=== PATIENT | female | born 2000 | race Caucasian/White ===

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

== ENCOUNTER 2019-01-21 17:25 | Emergency (ER) | payer SELFPAY ==
[~2019-01-21] VITALS: Ht 167.6 cm; Wt 58.1 kg
--- NOTE | 2019-01-21 17:35 | NUR ---
REC'D PT IN RM 9 FROM THE LOBBY VIA W/C. ORIENTED X4 AND WAS ABLE TO STAND ON HER OWN UPON TX FROM THE W/C TO THE STRETCHER
[2019-01-21 17:37] VITALS: BP 123/81
--- NOTE | 2019-01-21 17:43 | NUR ---
ORTHOSTATICS DONE AND GIVEN TO DR. WILL
[2019-01-21] MEDS ORDERED: KETOROLAC TROMETHAMINE 30 MG/ML VIAL IV NR (18:15)
[2019-01-21] MEDS ORDERED: DIPHENHYDRAMINE HCL INJ 50 MG/ML VIAL IV NR (18:15)
[2019-01-21] MEDS ORDERED: METOCLOPRAMIDE HCL 10 MG/2ML VIAL IV NR (18:15)
--- NOTE | 2019-01-21 18:15 | NUR ---
2 ATTEMPTS AT IV; UNSUCCESSFUL. DELIVERY MGR NOTIFIED.
--- NOTE | 2019-01-21 18:27 | NUR ---
MEDS GIVEN PER DR'S ORDRS AND PT HAS TOLERATED WELL.
[2019-01-21 18:39] LABS: BASOPHILS # (AUTO) 0.1 (0.0-0.1); BASOPHILS % 0.8 % (0.0-1.0); EOSINOPHILS % 0.3 % (0.0-6.0); HEMATOCRIT 41.1 % (34.2-44.1); HEMOGLOBIN 13.5 g/dL (12.0-16.0); LYMPHOCYTES # (AUTO) 2.4 (1.0-3.2); LYMPHOCYTES % 27.4 % (18.0-39.1); MEAN CORPUSCULAR HEMOGLOBIN 30.6 pg (28-32); MEAN CORPUSCULAR HGB CONC 32.8 g/dL (31-35); MEAN CORPUSCULAR VOLUME 93.2 fL (81-99); MONOCYTES # (AUTO) 0.6 (0.2-0.8); MONOCYTES % 6.6 % (4.4-11.3); NEUTROPHILS # (AUTO) 5.7 (2.1-6.9); NEUTROPHILS % 64.7 % (38.7-80.0); PLATELET COUNT 249 x10e3/uL (140-360); RED BLOOD COUNT 4.41 x10e6/uL (3.6-5.1); RED CELL DISTRIBUTION WIDTH 12.3 % (11.7-14.4)
[2019-01-21 19:01] LABS: ALANINE AMINOTRANSFERASE 16 IU/L (0-55); ALBUMIN 3.9 g/dL (3.5-5.0); ALBUMIN/GLOBULIN RATIO 1.1 (0.8-2.0); ALKALINE PHOSPHATASE 56 IU/L (40-150); ANION GAP 13.4 mmol/L (8-16); BLOOD UREA NITROGEN 9 mg/dL (7-26); BUN/CREATININE RATIO 12 (6-25); CALCIUM 9.7 mg/dL (8.4-10.2); CARBON DIOXIDE 23 mmol/L (22-29); CHLORIDE 107 mmol/L (98-107); CREATININE, SERUM 0.78 mg/dL (0.57-1.11); EST GLOMERULAR FILTRATION RATE > 60 ML/MIN (60-); GLUCOSE 96 mg/dL (74-118); POTASSIUM 3.4 mmol/L (3.5-5.1); SODIUM 140 mmol/L (136-145)
--- NOTE | 2019-01-21 19:10 | NUR ---
pt in br to give urine.
[2019-01-21] MEDS ORDERED: SODIUM CHLORIDE 0.9% 1000ML 1,000 ML IV STA (19:14)
[2019-01-21] MEDS ORDERED: POTASSIUM CHLORIDE 20 MEQ TAB CR PO NR (19:30)
[2019-01-21] MEDS ORDERED: SODIUM CHLORIDE 0.9% 1000ML 1,000 ML IV ONE (19:45)
[2019-01-21 19:53] LABS: BILIRUBIN,URINE NEGATIVE (NEGATIVE); CLARITY,URINE CLEAR (CLEAR); COLOR,URINE YELLOW (YELLOW); KETONES,URINE TRACE (NEGATIVE); LEUKOCYTE ESTERASE ,URINE SMALL (NEGATIVE); NITRITE,URINE NEGATIVE (NEGATIVE); PROTEIN,URINE DIPSTICK NEGATIVE (NEGATIVE); URINE UROBILINOGEN 0.2 mg/dL (0.2 - 1)
[2019-01-21 19:58] LABS: PREGNANCY TEST, URINE NEGATIVE (NEGATIVE)
[2019-01-21 20:28] LABS: BACTERIA,URINE FEW /HPF; EPITHELIAL CELLS,URINE MODERATE /LPF; MUCUS,URINE FEW (RARE)
== END 2019-01-21 21:00 | disposition home or self-care (01) ==
LOC: ER 17:29
DX: G43.119 Migraine with aura, intractable, without status migrainosus (principal)
CPT/HCPCS: 36415; 80053; 81001; 81025; 84702; 85025; 87086; 99284; J1200; J1885; J2765; J7030

== ENCOUNTER 2019-06-21 21:22 | Emergency (ER) | payer SELFPAY ==
[~2019-06-21] VITALS: Ht 167.6 cm; Wt 56.7 kg
== END 2019-06-21 22:15 | disposition home or self-care (01) ==
LOC: ER 21:22
DX: H10.023 Other mucopurulent conjunctivitis, bilateral (principal)

== ENCOUNTER 2019-08-23 06:23 | Emergency (ER) | payer SELFPAY ==
[~2019-08-23] VITALS: Ht 167.6 cm; Wt 56.2 kg
[2019-08-23] MEDS ORDERED: ACETAMINOPHEN 325 MG TAB PO ONE (06:45)
[2019-08-23 06:54] LABS: CLARITY,URINE CLOUDY (CLEAR); COLOR,URINE YELLOW (YELLOW)
[2019-08-23 06:55] LABS: KETONES,URINE NEGATIVE (NEGATIVE); LEUKOCYTE ESTERASE ,URINE TRACE (NEGATIVE); NITRITE,URINE NEGATIVE (NEGATIVE); PROTEIN,URINE DIPSTICK 1+ (NEGATIVE); URINE UROBILINOGEN 1 mg/dL (0.2 - 1)
[2019-08-23 06:56] LABS: BILIRUBIN,URINE SMALL (NEGATIVE)
--- NOTE | 2019-08-23 06:59 | NUR ---
Report to EDU Saldivar.
[2019-08-23 07:08] LABS: BACTERIA,URINE MODERATE /HPF; EPITHELIAL CELLS,URINE MODERATE /LPF; RBC,URINE 21-50 /HPF (0-5); TRANSITIONAL EPI CELLS,URINE FEW; WBC,URINE (MAN) 21-50 /HPF (0-5)
[2019-08-23] MEDS ORDERED: ONDANSETRON HCL 4 MG ORAL DISINTEGRATING TAB PO ONE (07:15)
[2019-08-23] MEDS ORDERED: KETOROLAC TROMETHAMINE 60 MG/2 ML VIAL IM ONE (07:15)
[2019-08-23] MEDS ORDERED: CEFTRIAXONE SOD 1 GM VIAL IM ONE (07:15)
[2019-08-23] MEDS ORDERED: LIDOCAINE HCL 1% 2 ML AMP ONE (07:33)
== END 2019-08-23 07:57 | disposition home or self-care (01) ==
LOC: ER 06:23
DX: R30.0 Dysuria (principal); R11.2 Nausea with vomiting, unspecified; N30.91 Cystitis, unspecified with hematuria
CPT/HCPCS: 81001; 81025; 87086; 99283; J0696; J1885; J2001; Q0162

== ENCOUNTER 2019-09-10 10:10 | Emergency (ER) | payer SELFPAY ==
[~2019-09-10] VITALS: Ht 167.6 cm; Wt 56.2 kg
--- OUTSIDE RECORDS SUMMARY | 2019-09-10 10:13 | XMS REPORT ---
Author Author [facility] t Organization [facility] Address [address] [place] [address] Phone Unavailable Care Team Providers Care Homeland Security Program Specialist Name Role Phone NO, PCP PCP Unavailable Savanna GREENWOOD Attphys Unavailable Payers Payer Name Policy Type Policy Number Effective Date Expiration Date S ource [facility] [id number] [facility] [id number] [facility] [id number] [facility] Advance Directives Directive Decision Effective Date Termination Date Comments Sour ce Yes N/A [facility] Problems Condition Name Condition Details Condition Category Status Onset Date Resolution Date Last Treatment Date Treating Clinician Comments Source Problem Condition [facility] Allergies, Adverse Reactions, Alerts Allergy Name Allergy Type Status Severity Reaction(s) Onset Date Inacti ve Date Treating Clinician Comments Source Penicillin Allergy to substance Active 2018-07-06 00:00:00 [facility] Penicillins DA Active U 2017-12-22 00:00:00 [facility] Penicillins DA Active U 2017-01-07 00:00:00 [facility] Social History Social Habit Start Date Stop Date Quantity Comments Source Sex Assigned At 2000 00:00:00 2000 00:00:00 Female [facility] Medications Ordered Medication Name Filled Medication Name Start Date Stop Da te Current Medication? Ordering Clinician Indication Dosage Frequency Signature (SIG) Comments Components Source Metronidazole 2018-03-03 00:00:00 Yes Abigail Fabián Pelegrina 1 tablet [facility] Drospirenone-Ethinyl Estradiol 2018-02-11 00:00:00 Yes Abigail Fabián Pelegrina 1 tablet [facility] Vital Signs Vital Name Observation Time Observation Value Comments Source Weight 2019-08-23 06:31:00 124 [lb_av] [facility] BMI (Body Mass Index) 2019-08-23 06:31:00 20.0 kg/m2 [facility] Procedures Procedure Date / Time Performed Performing Clinician [facility] e EMERGENCY DEPT VISIT 2019-06-21 00:00:00 [facility] Plan of Care Planned Activity Planned Date Details Comments Source Future Scheduled Test Bacterial urine culture [code = 630-4] [facility] Goal Patient referral [code = 9340734 ] [facility] Instructions Urinary Tract Infection - Women [facility] Encounters Start Date/Time End Date/Time Encounter Type Admission Type [facility] Facility Care Department Encounter ID Source 2019-09-10 10:13:06 Outpatient MHIEALT MHIEALT [id number] [facility] 2019-08-23 06:23:00 2019-08-23 07:57:00 Departed Emergency Room [facility] [id number] [facility] 2019-06-21 20:22:00 2019-06-21 21:15:00 Departed Emergency Room [facility] [id number] [facility] - Patients [facility] 2019-02-15 16:41:00 2019-02-15 16:41:00 Outpatient Naomi Head MD PhD PA Naomi Head MD PhD [place] [id number] [facility] 2019-01-21 17:29:00 2019-01-21 21:00:00 Departed Emergency Room [facility] [id number] [facility] 2018-07-07 20:24:00 2018-07-07 21:40:00 Departed Emergency Room [facility] [id number] [facility] 2018-07-06 15:55:00 2018-07-06 20:30:00 Departed Emergency Room 1 RAHEEM [facility] [id number] [facility] 2018-03-03 16:35:00 2018-03-03 16:35:00 Outpatient Naomi Head MD PhD PA Naomi Head MD PhD [place] [id number] [facility] Results Test Description Test Time Test Comments Results Result Comments Source Urine color determination 2019-08-23 06:45:00 Test Item Urine Color (test code = 5778-6) YELLOW [facility] gjwyqys5634-95-89 06:45:00* Test Item Value Reference Range Interpretation Comments Urine Clarity (test code = 60418-2) [facility] by Test strip 2019-08-23 06:45:00* Test Item Value Reference Range Interpretation Comments Urine Specific [place] (test code = 5811-5) >=1.030 [facility] pH measurement by automated test zufyb2928-87-10 06:45:00* Test Item Value Reference Range Interpretation Comments Urine pH (test code = 46480-2) 6.5 [facility] leukocyte esterase detection by alolwxxt8334-03-36 06:45:00* Test Item Value Reference Range Interpretation Comments Urine Leukocyte Esterase (test code = 5799-2) TRACE [facility] nitrite itvqyqezm8318-73-69 06:45:00* Test Item Value Reference Range Interpretation Comments Urine Nitrite (test code = 32344-4) NEGATIVE [facility] protein measurement by test strip (mass/volume)2019-08-23 06:45:00* Test Item Value Reference Range Interpretation Comments Urine Protein (test code = 5804-0) 1+ [facility] glucose rknwrsdwp8126-67-06 06:45:00* Test Item Value Reference Range Interpretation Comments Urine Glucose (UA) (test code = 2349-9) NEGATIVE [facility] ketones detection by automated test imnwz9331-13-33 06:45:00* Test Item Value Reference Range Interpretation Comments Urine Ketones (test code = 86065-9) NEGATIVE [facility] urobilinogen measurement by test strip (mass/volume)2019-08-23 06:45:00* Test Item Value Reference Range Interpretation Comments Urine Urobilinogen (test code = 09366-8) 1 [facility] total bilirubin measurement (mass/volume)2019-08-23 06:45:00* Test Item Value Reference Range Interpretation Comments Urine Bilirubin (test code = 1978-6) SMALL [facility] erythrocytes xhywukdxe0478-32-14 06:45:00* Test Item Value Reference Range Interpretation Comments Urine Blood (test code = 37760-5) TRACE [facility]Autom[facility] urine sediment leukocyte count by microscopy (number/high power field)2019-08-23 06:45:00* Test Item Value Reference Range Interpretation Comments Urine WBC (test code = 5821-4) [facility]Erythrocytes detection in urine sediment by light htnalrgvrr6725-23-40 06:45:00* Test Item Value Reference Range Interpretation Comments Urine RBC (test code = 27004-3) [facility]Bacteria detection in urine sediment by light tgqieyewge9027-60-75 06:45:00* Test Item Value Reference Range Interpretation Comments Urine Bacteria (test code = 48826-7) MODERATE [facility] HospitalEpithelial cells detection in urine sediment by light vsffsbwsux9330-83-52 06:45:00* Test Item Value Reference Range Interpretation Comments Urine Epithelial Cells (test code = 06796-6) MODERATE [facility] HospitalTransitional cells detection in urine sediment by light itjnbrgdpy6235-23-56 06:45:00* Test Item Value Reference Range Interpretation Comments Urine Transitional Epithelial Cells (test code = 8249-5) FEW [facility] HospitalUrine human chorionic gonadotropin (hCG) tyygkjtbq2947-06-47 06:45:00* Test Item Value Reference Range Interpretation Comments Urine Test (test code = 2106-3) NEGATIVE [facility] HospitalMucus detection in urine sediment by light ftobiziyga0313-09-23 19:30:00* Test Item Value Reference Range Interpretation Comments Urine Mucus (test code = 8247-9) FEW [facility] HospitalBlood leukocytes automated count (number/volume)2019-01-21 18:15:00* Test Item Value Reference Range Interpretation Comments White Blood Count (test code = 6690-2) 8.82 [facility] erythrocytes automated count (number/volume)2019-01-21 18:15:00* Test Item Value Reference Range Interpretation Comments Red Blood Count (test code = 789-8) 4.41 [facility]Blood hemoglobin measurement (moles/volume)2019-01-21 18:15:00* Test Item Value Reference Range Interpretation Comments Hemoglobin (test code = 75652-8) 13.5 [facility] HospitalAutomated blood hematocrit (volume fraction)2019-01-21 18:15:00* Test Item Value Reference Range Interpretation Comments Hematocrit (test code = 4544-3) 41.1 [facility] HospitalAutomated erythrocyte mean corpuscular ykpxxq0081-75-32 18:15:00* Test Item Value Reference Range Interpretation Comments Mean Corpuscular Volume (test code = 787-2) 93.2 [facility] HospitalAutomated erythrocyte mean corpuscular hemoglobin (mass per erythrocyte)2019-01-21 18:15:00* Test Item Value Reference Range Interpretation Comments Mean Corpuscular Hemoglobin (test code = 785-6) 30.6 [facility] HospitalAutomated erythrocyte mean corpuscular hemoglobin concentration measurement (mass/volume)2019-01-21 18:15:00* Test Item Value Reference Range Interpretation Comments Mean Corpuscular Hemoglobin Concent (test code = 786-4) 32.8 [facility] HospitalRDW CmnYm-Hkr0655-92-05 18:15:00* Test Item Value Reference Range Interpretation Comments Red Cell Distribution Width (test code = 36229-6) 12.3 [facility] HospitalAutomated blood platelet count (count/volume)2019-01-21 18:15:00* Test Item Value Reference Range Interpretation Comments Platelet Count (test code = 777-3) 249 [facility] segmented neutrophil count as percentage of total egtbyrcskw7919-70-69 18:15:00* Test Item Value Reference Range Interpretation Comments Neutrophils (%) (Auto) (test code = 69015-5) 64.7 [facility] HospitalAutomated blood lymphocyte count as percentage ot total pmouwejxeu4908-95-12 18:15:00* Test Item Value Reference Range Interpretation Comments Lymphocytes (%) (Auto) (test code = 736-9) 27.4 [facility] HospitalAutomated blood monocyte count as percentage of total fkmkovecmf6106-15-52 18:15:00* Test Item Value Reference Range Interpretation Comments Monocytes (%) (Auto) (test code = 5905-5) 6.6 [facility] HospitalAutomated blood eosinophil count as percentage of total uiyokkjmmq9066-08-54 18:15:00* Test Item Value Reference Range Interpretation Comments Eosinophils (%) (Auto) (test code = 713-8) 0.3 [facility] HospitalAutomated blood basophil count as percentage of total uizhkwrshl5844-70-02 18:15:00* Test Item Value Reference Range Interpretation Comments Basophils (%) (Auto) (test code = 706-2) 0.8 [facility] HospitalFluoroscopic procedure less than one hour abnbxaqu4774-19-94 18:15:00* Test Item Value Reference Range Interpretation Comments IM GRANULOCYTES % (test code = IM GRANULOCYTES %) 0.2 [facility] HospitalAutomated blood neutrophil count 2019-01-21 18:15:00* Test Item Value Reference Range Interpretation Comments Neutrophils # (Auto) (test code = 751-8) 5.7 [facility] HospitalBlood lymphocytes count (number/volume) 2019-01-21 18:15:00* Test Item Value Reference Range Interpretation Comments Lymphocytes # (Auto) (test code = 26234-7) 2.4 [facility] monocytes automated count (number/volume)2019-01-21 18:15:00* Test Item Value Reference Range Interpretation Comments Monocytes # (Auto) (test code = 742-7) 0.6 [facility] HospitalAutomated blood eosinophil count 2019-01-21 18:15:00* Test Item Value Reference Range Interpretation Comments Eosinophils # (Auto) (test code = 711-2) 0.0 [facility] HospitalAutomated blood basophil count (count/volume)2019-01-21 18:15:00* Test Item Value Reference Range Interpretation Comments Basophils # (Auto) (test code = 704-7) 0.1 [facility] HospitalFluoroscopic procedure less than one hour siqsykwx3888-35-81 18:15:00* Test Item Value Reference Range Interpretation Comments Absolute Immature Granulocyte (auto (anthony t code = Absolute Immature Granulocyte (auto) 0.02 [facility] plasma sodium measurement (moles/volume)2019-01-21 18:15:00* Test Item Value Reference Range Interpretation Comments Sodium Level (test code = 2951-2) 140 [facility]ellanderum or plasma potassium measurement (moles/volume)2019-01-21 18:15:00* Test Item Value Reference Range Interpretation Comments Potassium Level (test code = 2823-3) 3.4 [facility]um or plasma chloride measurement (moles/volume)2019-01-21 18:15:00* Test Item Value Reference Range Interpretation Comments Chloride Level (test code = 2075-0) 107 [facility]ellanderum or plasma carbon dioxide, total measurement (moles/volume)2019-01-21 18:15:00* Test Item Value Reference Range Interpretation Comments Carbon Dioxide Level (test code = 2028-9) 23 [facility]um or plasma anion boz1652-19-94 18:15:00* Test Item Value Reference Range Interpretation Comments Anion Gap (test code = 77167-0) 13.4 [facility] or plasma urea nitrogen measurement (mass/volume)2019-01-21 18:15:00* Test Item Value Reference Range Interpretation Comments Blood Urea Nitrogen (test code = 3094-0) 9 [facility]um or plasma creatinine measurement (mass/volume)2019-01-21 18:15:00* Test Item Value Reference Range Interpretation Comments Creatinine (test code = 2160-0) 0.78 [facility]um or plasma urea nitrogen/creatinine mass zjpth0775-14-52 18:15:00* Test Item Value Reference Range Interpretation Comments BUN/Creatinine Ratio (test code = 3097-3) 12 [facility] HospitalEstimated glomerular filtration rate (GFR) imqotwafohzxb3265-46-58 18:15:00* Test Item Value Reference Range Interpretation Comments Estimat Glomerular Filtration Rate (test code = 931706718) > 60 [facility] HospitalGlucose aaevzlnlgpe2895-73-20 18:15:00* Test Item Value Reference Range Interpretation Comments Glucose Level (test code = KAF1173) 96 [facility] or plasma calcium measurement (mass/volume)2019-01-21 18:15:00* Test Item Value Reference Range Interpretation Comments Calcium Level (test code = 25749-5) 9.7 [facility]um or plasma total bilirubin measurement (mass/volume)2019-01-21 18:15:00* Test Item Value Reference Range Interpretation Comments Total Bilirubin (test code = 1975-2) 0.7 [facility] HospitalFluoroscopic procedure less than one hour detmschh7945-63-70 18:15:00* Test Item Value Reference Range Interpretation Comments Aspartate Amino Transf (AST/SGOT) (test code = Aspartate Amino Transf (AST/SGOT)) 20 [facility] or plasma alanine aminotransferase measurement (enzymatic activity/volume)2019-01-21 18:15:00* Test Item Value Reference Range Interpretation Comments Alanine Aminotransferase (ALT/SGPT) (test code = 1742-6) 16 [facility]um or plasma protein measurement (mass/volume)2019-01-21 18:15:00* Test Item Value Reference Range Interpretation Comments Total Protein (test code = 2885-2) 7.6 [facility] or plasma albumin measurement (mass/volume)2019-01-21 18:15:00* Test Item Value Reference Range Interpretation Comments Albumin (test code = 1751-7) 3.9 [facility] HospitalPlasma globulin measurement (mass/volume) 2019-01-21 18:15:00* Test Item Value Reference Range Interpretation Comments Globulin (test code = 83729-5) 3.7 [facility] or plasma albumin/globulin mass zuzgx0824-04-60 18:15:00* Test Item Value Reference Range Interpretation Comments Albumin/Globulin Ratio (test code = 1759-0) 1.1 [facility] or plasma alkaline phosphatase measurement (enzymatic activity/volume)2019-01-21 18:15:00* Test Item Value Reference Range Interpretation Comments Alkaline Phosphatase (test code = 6768-6) 56 [facility]ellanderum or plasma choriogonadotropin ( test) zejjrtbew0862-13-08 18:15:00* Test Item Value Reference Range Interpretation Comments Human Chorionic Gonadotropin, Qual (test code = 2118-8) NEGATIVE [facility] HospitalCT [facility]/PELVIS Z5298-66-89 20:18:00 [facility] [address] [place] [address] Patient Name: FLOR FARIAS MR #: [id number] : 2000 Age/Sex: 17/F Req #: [id number] Adm Physician: Ordered by: MARVEL RIDDLE HEARING AID ASSEMBLY SUPERVISOR Report #: [id number] Location: ER Room/Bed: Procedure: [id number] C T/CT ABDOMEN/PELVIS W Exam Date: Exam Time: REPORT STATUS: Signed EXAM: CT of the abdomen and pelvis WITH contrast HISTORY: Fever, pain COMPARISON: None. TECHNIQUE: The abdomen and pelvis were scanned utilizing a multidetector helical scanner. Coronal and sagittal reformats are provided. PROTOCOL: Routine IV CONTRAST: 100 cc of Isovue-370. ORAL CONTRAST: Water RADIATION DOSE: Total DLP: 230.9 mGy*cm Estimated effective dose: (DLP x 0.015 x size factor) Dose modulation, iterative reconstruction, and/or weight based adjustment of the mA/kV was utilized to reduce the radiation dose to as low as reasonably a chievable. COMPLICATIONS: None FINDINGS: LOWER THORAX: Unre markable. Paucity of intra-abdominal and intra-pelvic fat partially limits the evaluation. HEPATOBILIARY: No mass. No biliary dilation. The gallbladder is contracted, no calcified stone. SPLEEN: No splenomegaly. PANCREAS: No focal masses or ductal dilatation. ADRENALS: No discrete a drenal nodule. KIDNEYS/URETERS: No hydronephrosis, stones, or definite rogelio d mass lesions. PELVIC ORGANS/BLADDER: The uterus is anteflexed. G I TRACT: The stomach is distended. No small bowel or colonic dilation. The appendix is normal. PERITONEUM / RETROPERITONEUM: No free air or fluid. LYMPH NODES: No definitive pathologically enlarged lymph node. VESSELS: Unr emarkable. BONES: No aggressive osseous lesion or acute fracture. SOFT TIS SUES: Unremarkable. IMPRESSION: 1. No obstruction or ileus. 2. No evidence of acute appendicitis or an abscess. Signed by: Luis WayO., M.M.M. on 07/06/2018 8:24 PM Dictated By: EVELIO Rodriguez Signed By: EVELIO GARCIA DO on 07/06/182023 Transcribed By: SAMMY on 06/18 COPY TO: MARVEL RIDDLE NP CHEST 2 YJETS3829-18-04 16:55:00 [place] [address] Patient Name: FLOR FARIAS MR #: [id number] : 2000 Age/Sex: 17/F Req #: [id number] Adm Physician: Ordered by: MARVEL RIDDLE NP Report #: [id number] Location: ER Room/Bed: Procedure: [id number] D X/CHEST 2 VIEWS Exam Date: 07/06/18 Exam Time: 1630 REPORT STATUS: Signed Frontal and lateral views of the chest. HISTORY: Fever, shortness of breath COMPAR DOUGLAS: None available. DISCUSSION: Lungs: The lungs are we ll inflated. No evidence of a consolidative pneumonia or pulmonary alveolar edema. Pleura: No pleural effusion or pneumothorax. Heart and med iastinum: The cardiomediastinal silhouette appears unremarkable. Bones and soft tissues: Appear unremarkable. IMPRESSION: No acute radio graphic abnormality. Signed by: Dr. Evelio Garcia D.O., M.M.M. on 07/06/2018 4:55 PM Dictated By: EVELIO GARCIA DO 54 Transcribed By: SAMMY on 07/06/181654 COPY TO: MARVEL RIDDLE NP
--- OUTSIDE RECORDS SUMMARY | 2019-09-10 10:13 | XMS REPORT ---
Author Author Lc Estes Organization [employer] Address Unknown Phone Unavailable Care Team Providers Care Factory Clerk Name Role Phone Abigail Estes CP Unavailable Allergies No Known Allergies Problems No Known Problems Medications Medication Code System Code Instructions Start Date End Date Status Dosage Drospirenone-Ethinyl Estradiol [facility] [id number] 3-0.03 MG Orally Once a day Feb 11, 2018 Active 1 tablet Results No Known Results Summary Purpose [employer] Submission
--- OUTSIDE RECORDS SUMMARY | 2019-09-10 10:13 | XMS REPORT | Continuity of Care Document ---
Author Author Nicole Pharminox [facility] Address Unknown Phone Unavailable Care Team Providers Care Director Export Name Role Phone [employer] Unavailable Un available Problems No Data Provided for This Section Medications Medication Details Route Status Patient Instructions Ordering Provider Order Date Source Metronidazole 1 tablet Orally Active 500 mg Orally Twice a d ay Fabián Pelegrina 03/03/2018 [facility] Drospirenone-Ethinyl Estradiol 1 tablet Orally Active 3-0.03 MG Orally Once a day Fabián Pelegrina 02/11/2018 [facility] Allergies, Adverse Reactions, Alerts No Known Medication Allergies Immunizations No Data Provided for This Section Results No Data Provided for This Section Pathology Reports No Data Provided for This Section Diagnostic Reports No Data Provided for This Section Consultation Notes No Data Provided for This Section Discharge Summaries No Data Provided for This Section History and Physicals No Data Provided for This Section Vital Signs No Data Provided for This Section Encounters No Data Provided for This Section Procedures No Data Provided for This Section Assessment and Plan No Data Provided for This Section Plan of Care No Data Provided for This Section Social History No Data Provided for This Section Family History No Data Provided for This Section Advance Directives No Data Provided for This Section Functional Status No Data Provided for This Section
[2019-09-10] MEDS ORDERED: SODIUM CHLORIDE 0.9% 1000ML 1,000 ML IV STA ×2 (10:23)
[2019-09-10] MEDS ORDERED: SODIUM CHLORIDE 0.9% 1000ML 2,000 ML ONE (10:32)
[2019-09-10 10:37] LABS: BASOPHILS # (AUTO) 0.1 (0.0-0.1); BASOPHILS % 1.1 % (0.0-1.0); EOSINOPHILS # (AUTO) 0.1 (0.0-0.4); EOSINOPHILS % 0.7 % (0.0-6.0); HEMATOCRIT 40.9 % (34.2-44.1); HEMOGLOBIN 13.2 g/dL (12.0-16.0); LYMPHOCYTES # (AUTO) 1.4 (1.0-3.2); LYMPHOCYTES % 19.6 % (18.0-39.1); MEAN CORPUSCULAR HEMOGLOBIN 30.1 pg (28-32); MEAN CORPUSCULAR HGB CONC 32.3 g/dL (31-35); MEAN CORPUSCULAR VOLUME 93.4 fL (81-99); MONOCYTES # (AUTO) 0.4 (0.2-0.8); MONOCYTES % 5.6 % (4.4-11.3); NEUTROPHILS # (AUTO) 5.1 (2.1-6.9); NEUTROPHILS % 72.7 % (38.7-80.0); PLATELET COUNT 250 x10e3/uL (140-360); RED BLOOD COUNT 4.38 x10e6/uL (3.6-5.1); RED CELL DISTRIBUTION WIDTH 12.8 % (11.7-14.4)
[2019-09-10] MEDS ORDERED: IBUPROFEN 600 MG TAB PO STA (12:13)
[2019-09-10 12:17] VITALS: BP 107/74
[2019-09-10 12:30] LABS: PREGNANCY TEST, URINE NEGATIVE (NEGATIVE)
[2019-09-10 12:37] LABS: ALANINE AMINOTRANSFERASE 16 IU/L (0-55); ALBUMIN 3.8 g/dL (3.5-5.0); ALBUMIN/GLOBULIN RATIO 1.1 (0.8-2.0); ALKALINE PHOSPHATASE 52 IU/L (40-150); ANION GAP 14.8 mmol/L (8-16); CALCIUM 9.9 mg/dL (8.4-10.2); CARBON DIOXIDE 23 mmol/L (22-29); CHLORIDE 106 mmol/L (98-107); CREATININE, SERUM 0.82 mg/dL (0.57-1.11); EST GLOMERULAR FILTRATION RATE > 60 ML/MIN (60-); POTASSIUM 3.8 mmol/L (3.5-5.1); SODIUM 140 mmol/L (136-145)
[2019-09-10 12:42] LABS: GLUCOSE 55 mg/dL (74-118)
[2019-09-10 12:48] LABS: CLARITY,URINE CLEAR (CLEAR); COLOR,URINE YELLOW (YELLOW)
[2019-09-10 12:49] LABS: BILIRUBIN,URINE SMALL (NEGATIVE); KETONES,URINE NEGATIVE (NEGATIVE); LEUKOCYTE ESTERASE ,URINE NEGATIVE (NEGATIVE); NITRITE,URINE NEGATIVE (NEGATIVE); PROTEIN,URINE DIPSTICK NEGATIVE (NEGATIVE); URINE UROBILINOGEN 1 mg/dL (0.2 - 1)
[2019-09-10 12:57] LABS: RBC,URINE 0-5 /HPF (0-5); WBC,URINE (MAN) 0-5 /HPF (0-5)
[2019-09-10 12:58] LABS: EPITHELIAL CELLS,URINE FEW /LPF
[2019-09-10 12:59] LABS: BACTERIA,URINE FEW /HPF; BUN/CREATININE RATIO 15 (6-25)
--- NOTE | 2019-09-10 13:13 | Emergency Department Note ---
History of Present Illnes History of Present Illness Chief Complaint: Neurological History of Present Illness This is a 18 year old female arrived to the ED requesting IVFs for a flare up of her dysautonomia- pt states she is unable to go to her neurologist b/c she does not have insurance. Chief Complaint Comment c/o weakness and dizziness and felt like passing out but did not hx of dysautonomia states when she gets like this she needs to come in for saline treatment md in room during triage Historian: Patient Arrival Mode: Car Onset (how long ago): week(s) Radiation: non-radiation Onset quality: gradual Duration (how long): week(s) Timing of current episode: intermittent Progression: waxing and waning Relieving factors: none Associated symptoms: weakness Past Medical/Family History Physician Review I have reviewed the patient's past medical and family history. Any updates have been documented here. Past Medical History Recent Fever: No Clinical Suspicion of Infectio: No New/Unexplained Change in Ment: No Other Medical History: DYSAUTONOMIA Neuropathy Past Surgical History: None Social History Smoking Cessation: Current every day smoker Counseling Performed: No Alcohol Use: Social Any Illegal Drug Use: Yes (marijuana) TB Exposure/Symptoms: No Physically hurt or threatened: No Other Last Tetanus: UTD Any Pre-Existing Lines (PICC,: No Is patient up to date on immun: Yes Last Flu: ood Last Pneumovax: ood Review of Systems Review of Systems Constitutional: malaise, weakness EENTM: no symptoms Cardiovascular: no symptoms Respiratory: no symptoms Gastrointestinal: no symptoms Genitourinary: no symptoms Musculoskeletal: no symptoms Neurological: no symptoms Psychological: no symptoms Endocrine: no symptoms Hematological/Lymphatic: no symptoms Review of other systems All other systems reviewed and negative. Physical Exam Related Data Allergies: Coded Allergies: Penicillins (Verified Allergy, Unknown, 07/06/18) Triage Vital Signs Vital Signs Date Time Temp Pulse Resp B/P (MAP) Pulse Ox O2 Delivery O2 Flow Rate FiO2 09/10/19 10:19 98.1 77 14 113/82 100 Vital signs reviewed: Yes Physical Exam CONSTITUTIONAL Constitutional: well-developed, well-nourished HENT HENT: normocephalic, atraumatic, oropharynx clear/moist, nose normal HENT L/R: left ext ear normal, right ext ear normal EYES Eyes: PERRL, conjunctivae normal NECK Neck: ROM normal PULMONARY Pulmonary: effort normal, breath sounds normal CARDIOVASCULAR Cardiovascular: regular rhythm, heart sounds normal, capillary refill normal, normal rate GASTROINTESTINAL Abdominal: soft, nontender, bowel sounds normal GENITOURINARY Genitourinary: exam deferred SKIN Skin: warm, dry MUSCULOSKELETAL Musculoskeletal: ROM normal NEUROLOGICAL Neurological: alert, oriented x 3, no gross motor or sensory deficits PSYCHOLOGICAL Psychological: mood/affect normal, judgement normal Results Laboratory Result Diagram: 09/10/19 1026 09/10/19 1026 Laboratory Laboratory Tests Test 09/10/19 10:26 White Blood Count 7.00 x10e3/uL (4.8-10.8) Red Blood Count 4.38 x10e6/uL (3.6-5.1) Hemoglobin 13.2 g/dL (12.0-16.0) Hematocrit 40.9 % (34.2-44.1) Mean Corpuscular Volume 93.4 fL (81-99) Mean Corpuscular Hemoglobin 30.1 pg (28-32) Mean Corpuscular Hemoglobin Concent 32.3 g/dL (31-35) Red Cell Distribution Width 12.8 % (11.7-14.4) Platelet Count 250 x10e3/uL (140-360) Neutrophils (%) (Auto) 72.7 % (38.7-80.0) Lymphocytes (%) (Auto) 19.6 % (18.0-39.1) Monocytes (%) (Auto) 5.6 % (4.4-11.3) Eosinophils (%) (Auto) 0.7 % (0.0-6.0) Basophils (%) (Auto) 1.1 % (0.0-1.0) Neutrophils # (Auto) 5.1 (2.1-6.9) Lymphocytes # (Auto) 1.4 (1.0-3.2) Monocytes # (Auto) 0.4 (0.2-0.8) Eosinophils # (Auto) 0.1 (0.0-0.4) Basophils # (Auto) 0.1 (0.0-0.1) Absolute Immature Granulocyte (auto 0.02 x10e3/uL (0-0.1) Urine Test Negative (NEGATIVE) Sodium Level 140 mmol/L (136-145) Potassium Level 3.8 mmol/L (3.5-5.1) Chloride Level 106 mmol/L (98-107) Carbon Dioxide Level 23 mmol/L (22-29) Anion Gap 14.8 mmol/L (8-16) Creatinine 0.82 mg/dL (0.57-1.11) Estimat Glomerular Filtration Rate > 60 ML/MIN (60-) Glucose Level 55 mg/dL (74-118) Calcium Level 9.9 mg/dL (8.4-10.2) Total Bilirubin 0.6 mg/dL (0.2-1.2) Aspartate Amino Transf (AST/SGOT) 19 IU/L (5-34) Alanine Aminotransferase (ALT/SGPT) 16 IU/L (0-55) Alkaline Phosphatase 52 IU/L (40-150) Total Protein 7.4 g/dL (6.5-8.1) Albumin 3.8 g/dL (3.5-5.0) Globulin 3.6 g/dL (2.3-3.5) Albumin/Globulin Ratio 1.1 (0.8-2.0) Lab results reviewed: Yes Imaging Imaging results reviewed: Yes Critical Care Time Subsequent provider I assumed direction of critical care for this patient from another provider of my specialty. Assessment & Plan Assessment & Plan Final Impression: (1) Dehydration Assessment & Plan cbc, cmp, ua IVFs Neurology f/u Depart Disposition: HOME, SELF-CARE Last Vital Signs Date Time Temp Pulse Resp B/P (MAP) Pulse Ox O2 Delivery O2 Flow Rate FiO2 09/10/19 12:17 62 16 100 09/10/19 12:16 107/74 09/10/19 10:19 98.1 Medications in the ED Sodium Chloride 2,000 ml @ ud STK-MED ONCE .ROUTE ; Start 09/10/19 at 10:32; Stop 09/10/19 at 10:26; Status DC Sodium Chloride 1,000 ml @ 0 mls/hr Q0M STAT IV Last administered on 09/10/19at 10:29; Admin Dose 999 MLS/HR; Start 09/10/19 at 10:23; Stop 09/10/19 at 10:28; Status DC Sodium Chloride 1,000 ml @ 0 mls/hr Q0M STAT IV Last administered on 5/24/20at 12:02; Admin Dose 999 MLS/HR; Start 09/10/19 at 10:23; Stop 09/10/19 at 10:28; Status DC Ibuprofen 600 mg ONCE STAT PO Last administered on 09/10/19at 12:22; Admin Dose 600 MG; Start 09/10/19 at 12:13; Stop 09/10/19 at 12:15; Status DC CARLITOS GARRIDO DO September 10, 2019 13:13
[2019-09-10 13:31] LABS: BLOOD UREA NITROGEN 12 mg/dL (7-26)
== END 2019-09-10 13:20 | disposition home or self-care (01) ==
LOC: ER 10:10
DX: E86.0 Dehydration (principal); G90.1 Familial dysautonomia [Riley-Day]
CPT/HCPCS: 36415; 80053; 81001; 81025; 82948; 85025; 93005; 99284; J7030

== ENCOUNTER 2021-04-19 19:26 | Emergency (ER) | payer SELFPAY ==
[~2021-04-19] VITALS: Ht 167.6 cm; Wt 53.1 kg
[2021-04-19] MEDS ORDERED: SODIUM CHLORIDE 0.9% 1000ML 1,000 ML IV STA ×2 (19:54)
[2021-04-19] MEDS ORDERED: SODIUM CHLORIDE 0.9% 1000ML 2,000 ML ONE (20:06)
[2021-04-19 21:15] VITALS: BP 126/82
== END 2021-04-19 21:15 | disposition home or self-care (01) ==
LOC: FSED 19:40
DX: R55 Syncope and collapse (principal); A18.01 Tuberculosis of spine; G90.1 Familial dysautonomia [Riley-Day]; Z88.0 Allergy status to penicillin
CPT/HCPCS: 81003; 99283; J7030

== ENCOUNTER 2021-09-25 12:22 | Emergency (ER) | payer BC ==
[~2021-09-25] VITALS: Ht 167.6 cm; Wt 53.1 kg
[2021-09-25] MEDS ORDERED: DEXAMETHASONE SOD PHOS 10 MG/1 ML VIAL IV ONE (12:45)
[2021-09-25] MEDS ORDERED: ALBUTEROL SULFATE HFA 8GM INHALATION AEROSOL INH PRN (12:45)
[2021-09-25] MEDS ORDERED: BEBTELOVIMAB 175 MG INJ IV ONE (12:45)
[2021-09-25] MEDS ORDERED: SODIUM CHLORIDE 0.9% 1000ML 1,000 ML IV ONE (12:45)
[2021-09-25] MEDS ORDERED: LEVALBUTEROL HCL SOLN NEBU 1.25 MG/3 ML NEB INH ONE (13:00)
[2021-09-25 13:01] LABS: BASOPHILS # (AUTO) 0.1 (0.0-0.1); EOSINOPHILS % 0.1 % (0.0-6.0); HEMATOCRIT 40.8 % (34.2-44.1); HEMOGLOBIN 13.8 g/dL (12.0-16.0); LYMPHOCYTES # (AUTO) 1.6 (1.0-3.2); MEAN CORPUSCULAR HEMOGLOBIN 31.3 pg (28-32); MEAN CORPUSCULAR HGB CONC 33.8 g/dL (31-35); MEAN CORPUSCULAR VOLUME 92.5 fL (81-99); MONOCYTES # (AUTO) 0.5 (0.2-0.8); MONOCYTES % 7.7 % (4.4-11.3); NEUTROPHILS # (AUTO) 4.6 (2.1-6.9); NEUTROPHILS % 68.1 % (38.7-80.0); PLATELET COUNT 215 x10e3/uL (140-360); RED BLOOD COUNT 4.41 x10e6/uL (3.6-5.1); RED CELL DISTRIBUTION WIDTH 11.9 % (11.7-14.4)
[2021-09-25 13:46] LABS: ALANINE AMINOTRANSFERASE 19 IU/L (0-55); ALBUMIN 3.5 g/dL (3.5-5.0); ALBUMIN/GLOBULIN RATIO 0.9 (0.8-2.0); ALKALINE PHOSPHATASE 41 IU/L (40-150); ANION GAP 16.3 mmol/L (8-16); BLOOD UREA NITROGEN 10 mg/dL (7-26); BUN/CREATININE RATIO 12 (6-25); CALCIUM 8.4 mg/dL (8.4-10.2); CARBON DIOXIDE 21 mmol/L (22-29); CHLORIDE 107 mmol/L (98-107); CREATINE KINASE 30 IU/L (29-168); CREATININE, SERUM 0.81 mg/dL (0.57-1.11); GLUCOSE 115 mg/dL (74-118); POTASSIUM 3.3 mmol/L (3.5-5.1); SODIUM 141 mmol/L (136-145)
== END 2021-09-25 14:35 | disposition home or self-care (01) ==
LOC: ER 12:42
DX: R06.02 Shortness of breath (principal); U07.1 COVID-19; J45.21 Mild intermittent asthma with (acute) exacerbation; G90.1 Familial dysautonomia [Riley-Day]
CPT/HCPCS: 36415; 71045; 80053; 82550; 82553; 84484; 85025; 93005; 99284; J1100; J7030; U0002

== ENCOUNTER 2024-05-22 09:55 | Emergency (ER) | payer BC, OTHER ==
[~2024-05-22] VITALS: Ht 167.6 cm; Wt 56.7 kg
[~2024-05-22 09:55] MED LIST: DICYCLOMINE HCL20 MG PO; LEVOFLOXACIN500 MG PO; METRONIDAZOLE500 MG PO; ONDANSETRON ODT4 MG PO
[2024-05-22 10:05] VITALS: TEMP 98.4
[2024-05-22] MEDS ORDERED: SODIUM CHLORIDE FLUSH 10 ML SYR IV PRN (10:45)
[2024-05-22] MEDS: KETOROLAC TROMETHAMINE 30 MG/ML VIAL IV STA (10:52)
[2024-05-22 10:53] LABS: BASOPHILS # (AUTO) 0.1 (0.0-0.1); BASOPHILS % 1.1 % (0.0-1.0); EOSINOPHILS # (AUTO) 0.1 (0.0-0.4); EOSINOPHILS % 1.8 % (0.0-6.0); HEMATOCRIT 38.5 % (34.2-44.1); HEMOGLOBIN 12.8 g/dL (12.0-16.0); LYMPHOCYTES # (AUTO) 1.9 (1.0-3.2); LYMPHOCYTES % 34.5 % (18.0-39.1); MEAN CORPUSCULAR HGB CONC 33.2 g/dL (31-35); MEAN CORPUSCULAR VOLUME 90.4 fL (81-99); MONOCYTES # (AUTO) 0.4 (0.2-0.8); MONOCYTES % 7.7 % (4.4-11.3); NEUTROPHILS # (AUTO) 3.1 (2.1-6.9); NEUTROPHILS % 54.5 % (38.7-80.0); PLATELET COUNT 194 x10e3/uL (140-360); RED BLOOD COUNT 4.26 x10e6/uL (3.6-5.1); RED CELL DISTRIBUTION WIDTH 12.3 % (11.7-14.4); WHITE BLOOD COUNT 5.59 x10e3/uL (4.8-10.8)
[2024-05-22 12:22] LABS: ALANINE AMINOTRANSFERASE 37 IU/L (0-55); ALBUMIN 4.2 g/dL (3.5-5.0); ALBUMIN/GLOBULIN RATIO 1.6 (0.8-2.0); ALKALINE PHOSPHATASE 60 IU/L (40-150); ANION GAP 15.5 mmol/L (8-16); BILIRUBIN,TOTAL 0.7 mg/dL (0.2-1.2); BLOOD UREA NITROGEN 9 mg/dL (7-26); BUN/CREATININE RATIO 10 (6-25); CALCIUM 9.3 mg/dL (8.4-10.2); CARBON DIOXIDE 22 mmol/L (22-29); CHLORIDE 108 mmol/L (98-107); CREATININE, SERUM 0.87 mg/dL (0.57-1.11); EST GLOMERULAR FILTRATION RATE 95 ML/MIN (>=60); GLUCOSE 87 mg/dL (74-118); POTASSIUM 3.5 mmol/L (3.5-5.1); SODIUM 142 mmol/L (136-145); TOTAL PROTEIN 6.8 g/dL (6.5-8.1)
[2024-05-22 12:28] LABS: TROPONIN I 0.002 ng/mL (0-0.300)
[2024-05-22] MEDS: ACETAMINOPHEN 325 MG TAB PO ONE (13:09)
[2024-05-22 13:59] VITALS: PULSE 81; RESP 18; O2SAT 100
== END 2024-05-22 14:00 | disposition home or self-care (01) ==
LOC: ER 10:26
DX: R07.89 Other chest pain (principal); M32.9 Systemic lupus erythematosus, unspecified; J45.909 Unspecified asthma, uncomplicated; G90.1 Familial dysautonomia [Riley-Day]; G62.9 Polyneuropathy, unspecified
CPT/HCPCS: 36415; 71046; 80053; 83880; 84484; 84702; 85025; 85379; 93005; 94760; 99284; J1885